=== PATIENT | female | born 1980 | race Caucasian/White ===

== ENCOUNTER 2019-10-25 08:25 | Emergency (ER) | payer SELFPAY ==
[~2019-10-25] VITALS: Ht 162.6 cm; Wt 113.9 kg
--- NOTE | 2019-10-25 08:59 | NUR ---
PT TO ROOM 35 VIA WHEELCHAIR.
--- NOTE | 2019-10-25 09:06 | NUR ---
PT HERE WITH C/O LEFT INNER LEG PAIN, AREA IS RED AND TENDER TO TOUCH BUT NOT HOT. PT STATES IT STARTED APPROX 4 DAYS AGO. PT AAO X 4, NAD, ROOM AIR, CALL LIGHT WITHIN REACH AND SIDERAIL X [address] LOOM BLOWER AT BEDSIDE FOR EXAM. PT IN GOWN AND ON MONITOR.
[2019-10-25] MEDS ORDERED: HYDROcodone/APAP 5/325 TABLET PO ONE (09:30)
[2019-10-25] MEDS ORDERED: HYDROcodone/APAP 5/325 TABLET ONE (09:38)
--- NOTE | 2019-10-25 09:40 | NUR ---
PT MEDICATED PER ORDERS. US AT BEDSIDE FOR EXAM.
--- NOTE | 2019-10-25 10:45 | NUR ---
ALL RESULTS BACK AT THIS, CHART UP FOR RECHECK.
--- NOTE | 2019-10-25 10:55 | NUR ---
REPORT RECEIVED FROM REYNA CRAVEN.
--- NOTE | 2019-10-25 11:04 | NUR ---
REPORT GIVEN TO HERBER ARREGUIN. CARE TRANSFERRED.
[2019-10-25 11:18] VITALS: BP 91/46
--- NOTE | 2019-10-25 11:26 | NUR ---
Patient given discharge instructions and they have confirmed that they understand the instructions. Patient ambulatory with steady gait.
== END 2019-10-25 11:27 | disposition home or self-care (01) ==
LOC: ED 11:15
DX: I80.02 Phlebitis and thrombophlebitis of superficial vessels of left lower extremity (principal); F17.210 Nicotine dependence, cigarettes, uncomplicated
CPT/HCPCS: 99284